=== PATIENT | female | born 1980 | race African-American/Black ===

== ENCOUNTER 2020-02-09 07:48 | Emergency (ER) | payer MEDICAID, OTHER ==
[~2020-02-09] VITALS: Ht 167.6 cm; Wt 59.0 kg
[2020-02-09 07:53] VITALS: BP 118/66
== END 2020-02-09 08:19 ==
LOC: ER 07:48
DX: S00.531A Contusion of lip, initial encounter (principal); F17.210 Nicotine dependence, cigarettes, uncomplicated; V47.5XXA Car driver injured in collision with fixed or stationary object in traffic accident, initial encounter; Y93.89 Activity, other specified; Y92.89 Other specified places as the place of occurrence of the external cause; Y99.8 Other external cause status